=== PATIENT | male | born 1960 | race Caucasian/White ===

== ENCOUNTER 2021-01-24 07:19 | Outpatient (CLI) | payer BC ==
[2021-01-24] MEDS ORDERED: Magnevist 469MG/ML 20 ML VIAL ONE (09:44)
== END 2021-01-24 07:20 | disposition home or self-care (01) ==
LOC: BICMRI 07:19
PROVIDERS: ATTEND Family Medicine
DX: K86.89 Other specified diseases of pancreas (principal); R74.8 Abnormal levels of other serum enzymes; R17 Unspecified jaundice; K86.2 Cyst of pancreas; K76.0 Fatty (change of) liver, not elsewhere classified
CPT/HCPCS: 74183; A9579

== ENCOUNTER 2021-10-24 14:24 | Outpatient (CLI) | payer BC | END 2021-10-24 14:25 | disposition home or self-care (01) | LOC: SCSMRI 14:24 | PROVIDERS: ATTEND Internal Medicine Gastroenterology | DX: K86.2 Cyst of pancreas (principal); K76.0 Fatty (change of) liver, not elsewhere classified; K80.20 Calculus of gallbladder without cholecystitis without obstruction | CPT/HCPCS: 74183; 82565 ==

== ENCOUNTER 2022-02-27 08:52 | Outpatient (CLI) | payer BC | END 2022-02-27 08:53 | disposition home or self-care (01) | LOC: CT 08:52 | PROVIDERS: ATTEND Family Medicine | DX: R51.9 Headache, unspecified (principal) | CPT/HCPCS: 70450 ==

== ENCOUNTER 2023-10-29 08:36 | Outpatient (CLI) | payer OTHER ==
[2023-10-29] MEDS ORDERED: Iopamidol 370 76% 100 ML VIAL ONE (11:54)
== END 2023-10-29 08:37 | disposition home or self-care (01) ==
LOC: CT 08:36
PROVIDERS: ATTEND Nurse Practitioner Family
DX: D75.1 Secondary polycythemia (principal); R10.32 Left lower quadrant pain; K86.89 Other specified diseases of pancreas; R74.8 Abnormal levels of other serum enzymes; K80.20 Calculus of gallbladder without cholecystitis without obstruction; K63.89 Other specified diseases of intestine; K86.2 Cyst of pancreas
CPT/HCPCS: 74178; Q9967